=== PATIENT | male | born 1950 | race Caucasian/White ===

== ENCOUNTER 2018-06-05 13:19 | Emergency (ER) | payer MEDICARE, SELFPAY ==
[2018-06-05 13:28] VITALS: BP 135/89; PULSE 98; RESP 18; TEMP 36.9; O2SAT 95; BMI 51.7
[2018-06-05 19:16] LABS: RBC Urine None Seen (0-5/HPF); Squamous Epithelial Cell Urine 5-10 /HPF; WBC Urine 0-1/HPF (0-5/HPF)
[2018-06-05 19:17] LABS: Amorphous Sediment Urine 1+; Bacteria Urine Occasional (0-1); Culture Indicated Urine Cult Not Indicated; Mucus Urine 1+ (Negative)
--- NOTE | 2018-06-05 19:26 | ED.MALEGU ---
HPI - Male Genitourinary <Ethel Hall PA-C - Last Filed: 06/05/18 22:19> General Chief complaint: Urogenital-Male Stated complaint: CANNOT PEE Time Seen by Provider: 06/05/18 18:09 Source: patient Mode of arrival: ambulatory Limitations: no limitations History of Present Illness HPI Narrative: This 68-year-old male comes in today due to feeling of being unable to urinate, however nurse's note that he has been incontinent multiple times. Patient states that this is correct, but feels sort of a pressure sensation and easier to urinate when supine. He states he has not checked his blood sugar at home recently, thinks typical blood sugars in the 150s. He has been drinking root beer here. He states he might have a tiny bit of dysuria but cannot really say if that is for sure when it started. He denies fever. He denies new nausea or vomiting, new back pain or other new complaints on systems review. He admits that he stopped taking his diuretic a week ago because it caused significant urinary frequency Related Data Home Medications Medication Instructions Recorded Confirmed Metformin Hydrochloride 1,000 mg PO BID #0 03/11/10 06/05/18 (Glucophage Xr) Metoprolol Tartrate (Lopressor) 150 mg PO BID #0 03/18/10 06/05/18 apixaban [Eliquis] 5 mg PO BID 06/05/18 06/05/18 digoxin 250 mcg PO DAILY 06/05/18 06/05/18 diltiazem HCl [DILT-XR] 120 mg PO DAILY 06/05/18 06/05/18 glipizide 2.5 mg PO BID 06/05/18 06/05/18 potassium chloride 1 tab PO DAILY 06/05/18 06/05/18 spironolactone 50 mg PO DAILY 06/05/18 06/05/18 torsemide 2 tab PO BID 06/05/18 06/05/18 Review of Systems <Ethel Hall PA-C - Last Filed: 06/05/18 22:19> Review of Systems All systems reviewed & are unremarkable except as noted in HPI and below Exam <Ethel Hall PA-C - Last Filed: 06/05/18 22:19> Narrative Exam Narrative: GENERAL APPEARANCE: Patient sitting comfortably, in no distress. LUNGS: Clear to auscultation bilaterally. HEART: Rate and rhythm irregular without murmur ABDOMEN: Soft, obese, NT, ND, +BS x 4 quadrants, no CVAT. EXTREMITIES: ruborous, moderate symmetric pitting edema bilaterally, nontender Initial Vital Signs Initial Vital Signs: Vital Signs Temperature 98.5 F 06/05/18 13:28 Pulse Rate 98 H 06/05/18 13:28 Respiratory Rate 18 06/05/18 13:28 Blood Pressure 135/89 H 06/05/18 13:28 Pulse Oximetry 95 06/05/18 13:28 <DO Jonh Valentino Last Filed: 06/06/18 04:12> Initial Vital Signs Initial Vital Signs: Vital Signs Temperature 98.5 F 06/05/18 13:28 Pulse Rate 98 H 06/05/18 13:28 Respiratory Rate 18 06/05/18 13:28 Blood Pressure 135/89 H 06/05/18 13:28 Pulse Oximetry 95 06/05/18 13:28 Course <WHIT Apodaca Last Filed: 06/05/18 22:19> Additional Information: Patient's glucose is 301, however he has been drinking a bottle or root beer in the exam room. He admits that he has not been monitoring his blood sugars recently. He admits that he has not been taking his diuretic in the last week due to urinary frequency. No evidence of acute infection or significant postvoid residual, and he has had multiple episodes of incontinence here in the department. Advised of the importance of resuming his diuretics, and follow up with his PCP with return for any acutely worsening symptoms, and he is agreeable Orders Ordered: ED Orders 06/05/18 18:30 Urine Microscopic Stat Vital Signs - 8 hr 06/05/18 20:04 Temperature 98.0 F Pulse Rate 89 Respiratory Rate 20 Blood Pressure [Left Arm] 148/89 H Pulse Oximetry 94 <DO Jonh Valentino Last Filed: 06/06/18 04:12> Orders Ordered: ED Orders 06/05/18 18:30 Urine Microscopic Stat Vital Signs - 8 hr 06/05/18 20:04 Temperature 98.0 F Pulse Rate 89 Respiratory Rate 20 Blood Pressure [Left Arm] 148/89 H Pulse Oximetry 94 MDM - Male Genitourinary <WHIT Apodaca Filed: 06/05/18 22:19> Lab Data Attestation: I reviewed the patient's lab results. Lab Results 06/05/18 Range/Units 18:30 Urine RBC None seen (0-5/HPF) Urine WBC 0-1/hpf (0-5/HPF) Ur Squamous Epith Cells 5-10 /hpf H Amorphous Sediment 1+ Urine Bacteria Occasional (0-1) (None) Urine Mucus 1+ H (Negative) Ur Culture Indicated? Cult not indicated Micro UA Comment Not Reportable POC glucose 301 Bladder scan 150 mL <Campbell Cardenas DO - Last Filed: 06/06/18 04:12> Lab Data Lab Results 06/05/18 Range/Units 18:30 Urine RBC None seen (0-5/HPF) Urine WBC 0-1/hpf (0-5/HPF) Ur Squamous Epith Cells 5-10 /hpf H Amorphous Sediment 1+ Urine Bacteria Occasional (0-1) (None) Urine Mucus 1+ H (Negative) Ur Culture Indicated? Cult not indicated Micro UA Comment Not Reportable Discharge Plan Departure Patient Disposition: Home, Self-Care Clinical Impression: Urinary bladder incontinence Discharge Date/Time: 06/05/18 20:44 Interventions: ED Discharge Assessment Last Done: 06/05/18 20:44 Instructions: DI for Urinary Incontinence Activity Restrictions/Additional Instructions: Even though it feels like your bladder is full, it is not overfilled or retaining urine, when we test you today. Since you are having some incontinence, you may need to follow up with a urologist as this could be due to a number of issues. It does not appear that you have a urinary infection on your microscopic testing today. Since you have not been taking your diuretic medicines (spironolactone and torsemide) you should restart these tomorrow morning. Please take them regularly as prescribed as this is very important for your heart. You will probably have increased urinary frequency when you initially start taking them as you experience before, so take them in the morning. Please be sure to follow up with your PCP next week for recheck. You should return here sooner if you have new symptoms such as fever or vomiting in the interim Prescriptions: No Action Metformin Hydrochloride (Glucophage Xr) 1,000 mg PO BID Qty: 0 RF: 0 Metoprolol Tartrate (Lopressor) 150 mg PO BID Qty: 0 RF: 0 torsemide 20 mg tablet 2 tab PO BID RF: 0 potassium chloride 10 mEq tablet extended release 1 tab PO DAILY RF: 0 digoxin 250 mcg tablet 250 mcg PO DAILY RF: 0 glipizide 2.5 mg tablet extended release 24hr 2.5 mg PO BID RF: 0 diltiazem HCl [DILT-XR] 120 mg capsule,ext.rel 24h degradable 120 mg PO DAILY RF: 0 spironolactone 50 mg tablet 50 mg PO DAILY RF: 0 apixaban [Eliquis] 5 mg tablet 5 mg PO BID RF: 0 Referrals: Faye Francois M.D. [Other] <Campbell Cardenas DO - Last Filed: 06/06/18 04:12> Cosign ED Attending Tayature Attestation: I was immediately available in the department for consultation. Documentation has been reviewed. I agree with assessment and plan.
[2018-06-05 20:04] VITALS: BP 148/89; PULSE 89; RESP 20; TEMP 36.7; O2SAT 94
--- NOTE | 2018-06-05 20:40 | PC.NURSE ---
Pt feels like he is retaining urine and unable to empty bladder. Has been incontinent.
== END 2018-06-05 20:44 | disposition home or self-care (01) ==
PROVIDERS: Emergency Medicine; Emergency Provider Internal Medicine
DX: R32 Unspecified urinary incontinence (principal)
CPT/HCPCS: 51798; 81003; 81015; 82962; 99283

== ENCOUNTER 2019-10-16 05:52 | Emergency (ER) | payer MEDICARE, SELFPAY ==
[2019-10-16 06:32] VITALS: BP 115/66; PULSE 126; RESP 18; TEMP 36.7; O2SAT 96
--- NOTE | 2019-10-16 06:51 | ED.MALEGU ---
HPI - Male Genitourinary General Chief complaint: Urogenital-Male Stated complaint: just in a lot of pain Time Seen by Provider: 10/16/19 05:52 Source: patient Limitations: no limitations History of Present Illness HPI Narrative: 69-year-old male smoker with cardiac history in diabetes as well as indwelling urinary catheter for the past year and a half presents with suprapubic pain and tenderness consistent with prior episodes of a clogged Rivas. He lives out of town and is visiting his sister locally. He insists on replacement with a 22 Lib[place] as that is what he normally uses. His last Rivas was replaced about 3 weeks ago. He went to bed in his normal state of health and woke up this morning noting that he was not feeling his Rivas bag. Over the course of the morning he has had increasing suprapubic tenderness. He denies any systemic findings such as fever, chills nor nausea or vomiting. His pain is worse with motion improves with rest. He is otherwise well and free of complaint. MD Complaint: other Onset (ago): hour(s) Duration: constant Location: abdomen Quality: aching Relieving factors: rest Exacerbating factors: movement Associated symptoms: Reports denies other symptoms Related Data Home Medications Medication Instructions Recorded Confirmed Metformin Hydrochloride 1,000 mg PO BID #0 03/11/10 06/05/18 (Glucophage Xr) Metoprolol Tartrate (Lopressor) 150 mg PO BID #0 03/18/10 06/05/18 apixaban [Eliquis] 5 mg PO BID 06/05/18 06/05/18 digoxin 250 mcg PO DAILY 06/05/18 06/05/18 diltiazem HCl [DILT-XR] 120 mg PO DAILY 06/05/18 06/05/18 glipizide 2.5 mg PO BID 06/05/18 06/05/18 potassium chloride 1 tab PO DAILY 06/05/18 06/05/18 spironolactone 50 mg PO DAILY 06/05/18 06/05/18 torsemide 2 tab PO BID 06/05/18 06/05/18 Review of Systems Constitutional Constitutional: Denies chills, Denies fatigue, Denies fever(s), Denies frequent falls, Denies lethargy and Denies weakness Eyes Eyes: Denies change in vision, Denies eye discharge, Denies irritation and Denies loss of vision ENT Ears, Nose, Mouth, and Throat: Denies change in voice, Denies dizziness, Denies neck pain, Denies sore throat and Denies throat swelling Cardiovascular Cardiovascular: Denies chest pain, Denies irregular heart rhythm, Denies lightheadedness, Denies palpitations, Denies dyspnea, Denies dyspnea on exertion and Denies orthopnea Respiratory Respiratory: Denies cough, Denies dyspnea, Denies dyspnea on exertion and Denies wheezing Gastrointestinal Gastrointestinal: Reports abdominal pain, Denies change in bowel habits, Denies diarrhea, Denies nausea and Denies vomiting Genitourinary Genitourinary: Denies hematuria, Reports difficulty urinating, Denies flank pain, Denies urinary incontinence and Denies urinary urgency Musculoskeletal Musculoskeletal: Denies back pain, Denies muscle weakness, Denies neck pain, Denies numbness and Denies tingling Integumentary/Breasts Skin/Breast: Denies pruritus, Denies erythema, Denies rash and Denies wounds Neurologic Neurologic: Denies behavioral changes, Denies confusion, Denies dizziness, Denies frequent falls, Denies loss of vision, Denies numbness, Denies tingling and Denies weakness Psychiatric Psychiatric: Denies anxiety, Denies behavioral changes, Denies confusion, Denies depression, Denies homicidal ideation and Denies suicidal ideation Endocrine Endocrine: Denies fatigue, Denies flushing and Denies palpitations Hematologic/Lymphatic Hematologic/Lymphatic: Denies easy bruising Allergic/Immunologic Allergic/Immunologic: Denies urticaria, Denies throat swelling and Denies wheezing Patient History Medical History Atrial fibrillation (Chronic) CHF (congestive heart failure) (Chronic) Diabetes (Chronic) HTN (hypertension) (Chronic) Morbid obesity (Chronic) MAYDA (obstructive sleep apnea) (Chronic) Social History Smoking Status: Former smoker Substance Use Type: does not use Exam Narrative Exam Narrative: GEN: AOx3 and in mild distress, 69-year-old male morbidly obese obviously uncomfortable EYES: Pupils are equal, round, and reactive to light and accommodation. Extraoccular muscles are intact bilaterally. There is no subconjunctival hemorrhage or exudate. CHEST: Lungs are clear to auscultation bilaterally and free of wheezes, rales, or rhonchi. Heart rate is regular rhythm, there are no murmurs, clicks, rubs, or gallops. There is no chest wall tenderness. ABD: Abdomen is soft and nontender. There is no guarding or rebound. Bowel sounds are normal in all 4 quadrants. There is no mass or organomegaly. : Rivas catheter in placed, not draining EXT: Full painless ROM of all extremities with no loss of sensation or strength. SKIN: Warm, pink, and dry. No erythema or rash Initial Vital Signs Initial Vital Signs: Vital Signs Temperature 98.0 F 10/16/19 06:32 Pulse Rate 126 H 10/16/19 06:32 Respiratory Rate 18 10/16/19 06:32 Blood Pressure 115/66 10/16/19 06:32 Pulse Oximetry 96 10/16/19 06:32 Course Course Course Narrative: Patient refused attempts at flushing, stating it never works and demands to be replaced. He is unhappy that we do not have a 22 Libyan but experiences tremendous relief upon successful placement of an 18 Libyan. Vital Signs Vital signs: Vital Signs - 8 hr 10/16/19 06:32 Temperature 98.0 F Pulse Rate 126 H Respiratory Rate 18 Blood Pressure [Left Arm] 115/66 Pulse Oximetry 96 Discharge Plan Departure Patient Disposition: Home Clinical Impression: Acute retention of urine Instructions: DI for Urinary Retention in Men Activity Restrictions/Additional Instructions: *You have been diagnosed with [Rivas catheter replacement and urinary retention] *What to do: *Take medications as directed *Follow up with your primary care provider in 2-3 days, call for an appointment. Let them know you were seen in the Emergency Department and that we ask that you be seen in follow up *Return to ER if you should have any new, worsening or concerning symptoms Prescriptions: No Action Metformin Hydrochloride (Glucophage Xr) 1,000 mg PO BID Qty: 0 RF: 0 Metoprolol Tartrate (Lopressor) 150 mg PO BID Qty: 0 RF: 0 torsemide 20 mg tablet 2 tab PO BID RF: 0 potassium chloride 10 mEq tablet extended release 1 tab PO DAILY RF: 0 digoxin 250 mcg tablet 250 mcg PO DAILY RF: 0 glipizide 2.5 mg tablet extended release 24hr 2.5 mg PO BID RF: 0 diltiazem HCl [DILT-XR] 120 mg capsule,ext.rel 24h degradable 120 mg PO DAILY RF: 0 spironolactone 50 mg tablet 50 mg PO DAILY RF: 0 apixaban [Eliquis] 5 mg tablet 5 mg PO BID RF: 0
[2019-10-16 07:14] VITALS: BP 121/77; PULSE 91; RESP 18; O2SAT 96
--- NOTE | 2019-10-16 07:26 | PC.NURSE ---
patient reports feeling a very full bladder and his valderrama is not draining. he states he removed about 50ml from it last night.
--- NOTE | 2019-10-16 07:29 | PC.NURSE ---
patient tolerated procedure well. 600ml returned.
== END 2019-10-16 07:16 | disposition home or self-care (01) ==
PROVIDERS: Emergency Provider Emergency Medicine
DX: R33.9 Retention of urine, unspecified (principal)
CPT/HCPCS: 99283